=== PATIENT | female | born 1945 | race Two or more races ===

== ENCOUNTER → 2023-04-03 | Outpatient (CLI) | payer OTHER ==
[2023-04-03 07:44] LABS: Basophils # (auto) 0 10 ^3/uL (0-0.2); Basophils % (auto) 0.9 % (0.0-2.0); Eosinophils # (auto) 0.1 10 ^3/uL (0-0.8); Hematocrit 41.3 % (36.0-46.0); Hemoglobin 14.1 g/dL (12.2-16.2); Lymphocytes # (auto) 1.7 10 ^3/uL (0.4-5.4); Lymphocytes % (auto) 30.7 % (10.0-50.0); Mean Corpuscular Hgb Conc. 34.3 g/dL (32.0-36.0); Mean Corpuscular Volume 96.3 fL (80.0-100.0); Monocytes # (auto) 0.4 10 ^3/uL (0-1.3); Monocytes % (auto) 7.9 % (0.0-12.0); Neutrophils # (auto) 3.2 10 ^3/uL (1.6-8.6); Neutrophils % (auto) 58.5 % (37.0-80.0); Nucleated Red Blood Cells % 0.1 %; Red Blood Cells 4.29 10^6/uL (4.0-5.20); Red Cell Distribution Width 13.9 % (11.8-14.3); White Blood Cell 5.5 10^3/uL (4.4-10.8)
[2023-04-03 09:25] LABS: Potassium 3.7 mmol/L (3.5-5.1)
[2023-04-03 09:44] LABS: Albumin 3.7 g/dL (3.4-5.0); BUN/Creatinine Ratio 16.3 (10.0-20.0); Bilirubin, Total 0.6 mg/dL (0.2-1.0); Calcium 9.1 mg/dL (8.5-10.1); Total Protein 7.6 g/dL (6.4-8.2)
[2023-04-03 10:57] LABS: Urine Bacteria NONE SEEN /hpf (None Seen); Urine Blood Negative /uL (Negative); Urine Specific Gravity 1.008 (1.001-1.035); Urine WBC <1 /hpf (0 - 5)
== END | disposition home or self-care (01) ==
LOC: LAB 07:02
PROVIDERS: ATTEND Internal Medicine
DX: I10 Essential (primary) hypertension (principal); E11.65 Type 2 diabetes mellitus with hyperglycemia; K21.9 Gastro-esophageal reflux disease without esophagitis
CPT/HCPCS: 36415; 80053; 80061; 81001; 83036; 85025; 87086

== ENCOUNTER 2023-05-07 08:06 | Inpatient (IN) | payer OTHER ==
[~2023-05-07] VITALS: Ht 167.6 cm; Wt 58.9 kg
[2023-05-07] MEDS ORDERED: HYDROcodone-ACET 5/325MG TAB PO ONE (13:15)
[2023-05-07 13:56] LABS: Hemoglobin 13.8 g/dL (12.2-16.2); Lymphocytes # (auto) 1.2 10 ^3/uL (0.4-5.4); Monocytes # (auto) 0.3 10 ^3/uL (0-1.3); Nucleated Red Blood Cells % 0.1 %; White Blood Cell 6.4 10^3/uL (4.4-10.8)
[2023-05-07 13:59] LABS: Basophils # (auto) 0 10 ^3/uL (0-0.2); Basophils % (auto) 0.7 % (0.0-2.0); Eosinophils # (auto) 0 10 ^3/uL (0-0.8); Eosinophils % (auto) 0.8 % (0.0-7.0); Hematocrit 39.9 % (36.0-46.0); Lymphocytes % (auto) 18.3 % (10.0-50.0); Mean Corpuscular Hemoglobin 33.8 pg (28.0-32.0); Mean Corpuscular Hgb Conc. 34.5 g/dL (32.0-36.0); Mean Corpuscular Volume 97.7 fL (80.0-100.0); Monocytes % (auto) 4.7 % (0.0-12.0); Neutrophils # (auto) 4.9 10 ^3/uL (1.6-8.6); Neutrophils % (auto) 75.5 % (37.0-80.0); Red Blood Cells 4.08 10^6/uL (4.0-5.20); Red Cell Distribution Width 13.7 % (11.8-14.3)
[2023-05-07 14:19] LABS: Albumin 4.4 g/dL (3.2-4.8); Alkaline Phosphatase 110 U/L (46-116); Anion Gap 10.1 (5-15); Aspartate Aminotransferase 16 U/L (13-40); BUN/Creatinine Ratio 13.3 (10.0-20.0); Blood Urea Nitrogen 11 mg/dL (9-23); Calcium 9.3 mg/dL (8.5-10.1); Carbon Dioxide 25.9 mmol/L (20-30); Chloride 105 mmol/L (98-107); Glucose 183 mg/dL (74-106); Potassium 3.5 mmol/L (3.5-5.1); Sodium 141 mmol/L (136-145)
[2023-05-07 14:20] LABS: Bilirubin, Total 0.5 mg/dL (0.2-1.0); Total Protein 7.4 g/dL (5.7-8.2)
[2023-05-07 14:23] LABS: INR 1.03 (0.9-1.15); Partial Thromboplastin Time 22.7 SEC (24.5-34.5); Prothrombin Time 10.8 sec (9.3-11.8)
[2023-05-07 14:38] LABS: Alanine Aminotransferase < 9 U/L (7-40)
[2023-05-07] MEDS ORDERED: DEXTROSE (50%) 50ML SYRG IV PRN (14:45)
[2023-05-07] MEDS ORDERED: HYDROcodone-ACET 5/325MG TAB PO PRN (14:45)
[2023-05-07] MEDS ORDERED: HYDROcodone-ACET 10/325MG TAB PO PRN (14:45)
[2023-05-07] MEDS ORDERED: hydrALAZINE HCL 20 MG/ML VL IV PRN (14:45)
[2023-05-07] MEDS ORDERED: URSO300C2 PO (14:57)
[2023-05-07] MEDS ORDERED: METF-370 PO (14:57)
[2023-05-07] MEDS ORDERED: POTA-264 PO (14:57)
[2023-05-07] MEDS ORDERED: GAB100C PO (14:57)
[2023-05-07] MEDS ORDERED: SIMV20TA20 PO (14:57)
[2023-05-07 16:02] VITALS: PULSE 60; RESP 12; O2SAT 97
[2023-05-07] MEDS: InsuLIN REG 1unit/0.01ml Soln (100units/ml) SC SCH ×3 (17:00→22:39)
[2023-05-07] MEDS: ACCU-CHEK COMFORT CURVE STRIP VI SCH ×2 (17:11→22:18)
[2023-05-07] MEDS: URSODIOL 300 MG CAP PO SCH (22:00)
[2023-05-07] MEDS: ATORVASTATIN 20 MG TAB PO SCH (22:34)
[2023-05-07] MEDS: GABAPENTIN 100 MG CAP PO SCH (22:35)
[2023-05-07] MEDS: ACETAMINOPHEN 325 MG TAB PO PRN (22:55)
[2023-05-08 02:40] LABS: Urine Bacteria NONE SEEN /hpf (None Seen); Urine Blood Negative /uL (Negative); Urine Clarity Clear (Clear); Urine Color Colorless (Yellow); Urine Protein, UAD Negative (Negative); Urine Urobilinogen Normal (Negative); Urine WBC 101 /hpf (0 - 5)
[2023-05-08] MEDS: ACCU-CHEK COMFORT CURVE STRIP VI SCH ×4 (06:31→22:21)
[2023-05-08 07:30] VITALS: O2SAT 98
[2023-05-08 08:04] LABS: Basophils # (auto) 0.1 10 ^3/uL (0-0.2); Basophils % (auto) 1.1 % (0.0-2.0); Eosinophils # (auto) 0.1 10 ^3/uL (0-0.8); Eosinophils % (auto) 2.4 % (0.0-7.0); Hematocrit 39.2 % (36.0-46.0); Hemoglobin 13.4 g/dL (12.2-16.2); Lymphocytes # (auto) 1.2 10 ^3/uL (0.4-5.4); Lymphocytes % (auto) 22.8 % (10.0-50.0); Mean Corpuscular Hemoglobin 33.2 pg (28.0-32.0); Mean Corpuscular Hgb Conc. 34.1 g/dL (32.0-36.0); Mean Corpuscular Volume 97.3 fL (80.0-100.0); Monocytes # (auto) 0.4 10 ^3/uL (0-1.3); Monocytes % (auto) 8.7 % (0.0-12.0); Neutrophils # (auto) 3.3 10 ^3/uL (1.6-8.6); Nucleated Red Blood Cells % 0.1 %; Red Blood Cells 4.03 10^6/uL (4.0-5.20); White Blood Cell 5.1 10^3/uL (4.4-10.8)
[2023-05-08 08:23] LABS: Alkaline Phosphatase 93 U/L (46-116); Anion Gap 7.8 (5-15); Aspartate Aminotransferase 17 U/L (13-40); BUN/Creatinine Ratio 16.3 (10.0-20.0); Bilirubin, Total 0.7 mg/dL (0.2-1.0); Blood Urea Nitrogen 13 mg/dL (9-23); Calcium 9.1 mg/dL (8.5-10.1); Carbon Dioxide 24.2 mmol/L (20-30); Chloride 106 mmol/L (98-107); Glucose 130 mg/dL (74-106); Potassium 3.6 mmol/L (3.5-5.1); Sodium 138 mmol/L (136-145); Total Protein 6.8 g/dL (5.7-8.2)
[2023-05-08 08:26] LABS: Alanine Aminotransferase < 9 U/L (7-40)
[2023-05-08] MEDS: POTASSIUM CHL 10 Meq TABLET PO SCH (09:44)
[2023-05-08] MEDS: URSODIOL 300 MG CAP PO SCH ×2 (09:44→22:21)
[2023-05-08] MEDS: InsuLIN REG 1unit/0.01ml Soln (100units/ml) SC SCH ×3 (11:30→22:00)
[2023-05-08 17:00] VITALS: BP 136/71; PULSE 67; RESP 19; TEMP 97.5; O2SAT 99
[2023-05-08 20:00] VITALS: O2SAT 97
[2023-05-08 21:54] VITALS: BP 143/82; PULSE 94; RESP 20; TEMP 97.3; O2SAT 97
[2023-05-08] MEDS: GABAPENTIN 100 MG CAP PO SCH (22:21)
[2023-05-08] MEDS: ATORVASTATIN 20 MG TAB PO SCH (22:21)
[2023-05-09] VITALS (7 sets, daily range): BP systolic 114–159; BP diastolic 69–79; PULSE 70–75; RESP 18–20; TEMP 97.6–98.5; O2SAT 93–100
[2023-05-09 06:57] LABS: Basophils # (auto) 0 10 ^3/uL (0-0.2); Basophils % (auto) 0.7 % (0.0-2.0); Eosinophils # (auto) 0.1 10 ^3/uL (0-0.8); Eosinophils % (auto) 1.7 % (0.0-7.0); Hematocrit 38.1 % (36.0-46.0); Hemoglobin 13.4 g/dL (12.2-16.2); Lymphocytes # (auto) 1.2 10 ^3/uL (0.4-5.4); Lymphocytes % (auto) 17.3 % (10.0-50.0); Mean Corpuscular Hemoglobin 33.3 pg (28.0-32.0); Mean Corpuscular Hgb Conc. 35.2 g/dL (32.0-36.0); Mean Corpuscular Volume 94.7 fL (80.0-100.0); Monocytes # (auto) 0.5 10 ^3/uL (0-1.3); Neutrophils # (auto) 5.1 10 ^3/uL (1.6-8.6); Neutrophils % (auto) 73.3 % (37.0-80.0); Nucleated Red Blood Cells % 0.1 %; Red Blood Cells 4.02 10^6/uL (4.0-5.20); Red Cell Distribution Width 13.5 % (11.8-14.3); White Blood Cell 6.9 10^3/uL (4.4-10.8)
[2023-05-09] MEDS: InsuLIN REG 1unit/0.01ml Soln (100units/ml) SC SCH ×4 (07:00→22:00)
[2023-05-09] MEDS: ACCU-CHEK COMFORT CURVE STRIP VI SCH ×3 (07:24→18:01)
[2023-05-09 07:26] LABS: Calcium 9.1 mg/dL (8.5-10.1); Chloride 102 mmol/L (98-107); Potassium 3.9 mmol/L (3.5-5.1); Sodium 136 mmol/L (136-145)
[2023-05-09 07:27] LABS: Anion Gap 6.3 (5-15); Carbon Dioxide 27.7 mmol/L (20-30)
[2023-05-09 07:32] LABS: Blood Urea Nitrogen 19 mg/dL (9-23); Glucose 140 mg/dL (74-106)
[2023-05-09] MEDS: POTASSIUM CHL 10 Meq TABLET PO SCH (10:00)
[2023-05-09] MEDS: URSODIOL 300 MG CAP PO SCH ×2 (10:01→23:11)
[2023-05-09] MEDS ORDERED: LIDOCAINE 2% (LOCAL ANESTH.) PF 5ml SDV ONE (10:41)
[2023-05-09] MEDS ORDERED: fentaNYL CITRATE 100 MCG/2 ML VL ONE (10:58)
[2023-05-09] MEDS ORDERED: MIDAZOLAM HCL 2MG/2ML 2ml VIAL (1mg/ml) ONE (10:58)
[2023-05-09] MEDS ORDERED: MIDAZOLAM HCL 2MG/2ML 2ml VIAL (1mg/ml) IV ONE (11:00)
[2023-05-09] MEDS ORDERED: fentaNYL CITRATE 100 MCG/2 ML VL IV ONE (11:00)
[2023-05-09] MEDS: ACETAMINOPHEN 325 MG TAB PO PRN (16:01)
[2023-05-09 22:54] LABS: Basophils # (auto) 0 10 ^3/uL (0-0.2); Basophils % (auto) 0.8 % (0.0-2.0); Eosinophils # (auto) 0.1 10 ^3/uL (0-0.8); Eosinophils % (auto) 1.7 % (0.0-7.0); Hematocrit 36.1 % (36.0-46.0); Hemoglobin 12.7 g/dL (12.2-16.2); Lymphocytes # (auto) 1.5 10 ^3/uL (0.4-5.4); Lymphocytes % (auto) 29.5 % (10.0-50.0); Mean Corpuscular Hemoglobin 33.4 pg (28.0-32.0); Mean Corpuscular Hgb Conc. 35.1 g/dL (32.0-36.0); Mean Corpuscular Volume 95.2 fL (80.0-100.0); Monocytes # (auto) 0.5 10 ^3/uL (0-1.3); Monocytes % (auto) 9.2 % (0.0-12.0); Neutrophils % (auto) 58.8 % (37.0-80.0); Red Cell Distribution Width 13.5 % (11.8-14.3); White Blood Cell 5.2 10^3/uL (4.4-10.8)
[2023-05-09] MEDS: GABAPENTIN 100 MG CAP PO SCH (23:03)
[2023-05-09 23:04] LABS: Chloride 105 mmol/L (98-107); Potassium 3.6 mmol/L (3.5-5.1); Sodium 135 mmol/L (136-145)
[2023-05-09] MEDS: ATORVASTATIN 20 MG TAB PO SCH (23:04)
[2023-05-09] MEDS: CEPHALEXIN 250 MG CAP PO SCH (23:04)
[2023-05-09 23:05] LABS: Anion Gap 3.9 (5-15); Calcium 8.9 mg/dL (8.7-10.4); Carbon Dioxide 26.1 mmol/L (20-30)
[2023-05-09 23:10] LABS: BUN/Creatinine Ratio 19.5 (10.0-20.0); Blood Urea Nitrogen 15 mg/dL (9-23); Glucose 130 mg/dL (74-106)
[2023-05-10] MEDS: ACCU-CHEK COMFORT CURVE STRIP VI SCH ×5 (00:10→22:04)
[2023-05-10 05:00] VITALS: BP 130/70; PULSE 63; RESP 18; TEMP 98.1; O2SAT 93
[2023-05-10] MEDS: InsuLIN REG 1unit/0.01ml Soln (100units/ml) SC SCH ×4 (07:00→22:07)
[2023-05-10] MEDS: ACETAMINOPHEN 325 MG TAB PO PRN ×2 (07:23→22:12)
[2023-05-10] MEDS ORDERED: PANTOPRAZOLE 40 MG TAB PO ONE (08:15)
[2023-05-10] MEDS ORDERED: DOCUSATE SOD 100 MG CAP PO ONE (08:15)
[2023-05-10 08:30] VITALS: RESP 18
[2023-05-10 09:00] VITALS: BP 133/71; PULSE 63; RESP 16; TEMP 97.6; O2SAT 100
[2023-05-10] MEDS: CEPHALEXIN 250 MG CAP PO SCH ×2 (10:37→22:02)
[2023-05-10] MEDS: URSODIOL 300 MG CAP PO SCH ×2 (10:38→22:03)
[2023-05-10] MEDS: POTASSIUM CHL 10 Meq TABLET PO SCH (10:38)
[2023-05-10 13:00] VITALS: BP 120/61; PULSE 73; RESP 17; TEMP 98; O2SAT 99
[2023-05-10 17:00] VITALS: BP 147/79; PULSE 71; RESP 18; TEMP 98.2; O2SAT 100
[2023-05-10 22:00] VITALS: BP 123/74; PULSE 72; RESP 18; TEMP 98; O2SAT 97
[2023-05-10] MEDS: PANTOPRAZOLE 40 MG TAB PO SCH (22:00)
[2023-05-10] MEDS: GABAPENTIN 100 MG CAP PO SCH (22:01)
[2023-05-10] MEDS: ATORVASTATIN 20 MG TAB PO SCH (22:01)
[2023-05-10] MEDS: DOCUSATE SOD 100 MG CAP PO SCH (22:02)
[2023-05-11 05:00] VITALS: BP 138/66; PULSE 60; RESP 18; TEMP 97.6; O2SAT 95
[2023-05-11] MEDS: ACCU-CHEK COMFORT CURVE STRIP VI SCH ×4 (06:20→21:25)
[2023-05-11] MEDS: InsuLIN REG 1unit/0.01ml Soln (100units/ml) SC SCH ×4 (06:20→21:26)
[2023-05-11 08:00] VITALS: PULSE 67; RESP 16
[2023-05-11] MEDS: PANTOPRAZOLE 40 MG TAB PO SCH (08:48)
[2023-05-11] MEDS: URSODIOL 300 MG CAP PO SCH ×2 (08:50→21:29)
[2023-05-11] MEDS: DOCUSATE SOD 100 MG CAP PO SCH ×2 (08:51→21:28)
[2023-05-11] MEDS: POTASSIUM CHL 10 Meq TABLET PO SCH (08:51)
[2023-05-11] MEDS: CEPHALEXIN 250 MG CAP PO SCH ×2 (08:51→21:27)
[2023-05-11 08:54] LABS: Chloride 105 mmol/L (98-107); Potassium 3.8 mmol/L (3.5-5.1); Sodium 137 mmol/L (136-145)
[2023-05-11 08:56] LABS: Calcium 9.1 mg/dL (8.5-10.1)
[2023-05-11 09:00] VITALS: BP 123/63; PULSE 67; RESP 14; TEMP 96.8; O2SAT 96
[2023-05-11 09:01] LABS: BUN/Creatinine Ratio 15.8 (10.0-20.0); Blood Urea Nitrogen 12 mg/dL (9-23); Glucose 132 mg/dL (74-106)
[2023-05-11 09:03] LABS: Basophils # (auto) 0 10 ^3/uL (0-0.2); Eosinophils # (auto) 0.1 10 ^3/uL (0-0.8); Hematocrit 41.7 % (36.0-46.0); Hemoglobin 13.5 g/dL (12.2-16.2); Lymphocytes # (auto) 1.2 10 ^3/uL (0.4-5.4); Lymphocytes % (auto) 24.7 % (10.0-50.0); Mean Corpuscular Hemoglobin 31.4 pg (28.0-32.0); Mean Corpuscular Hgb Conc. 32.2 g/dL (32.0-36.0); Mean Corpuscular Volume 97.4 fL (80.0-100.0); Monocytes # (auto) 0.4 10 ^3/uL (0-1.3); Monocytes % (auto) 8.2 % (0.0-12.0); Neutrophils # (auto) 3.2 10 ^3/uL (1.6-8.6); Neutrophils % (auto) 64.1 % (37.0-80.0); Nucleated Red Blood Cells % 0.2 %; Red Blood Cells 4.28 10^6/uL (4.0-5.20); Red Cell Distribution Width 14.4 % (11.8-14.3); White Blood Cell 5.1 10^3/uL (4.4-10.8)
[2023-05-11 13:00] VITALS: BP 142/68; PULSE 67; RESP 14; RESP 4; TEMP 96.7; O2SAT 95
[2023-05-11 17:00] VITALS: BP 126/76; PULSE 70; RESP 14; TEMP 98; O2SAT 95
[2023-05-11] MEDS: ATORVASTATIN 20 MG TAB PO SCH (21:28)
[2023-05-11] MEDS: GABAPENTIN 100 MG CAP PO SCH (21:28)
[2023-05-11] MEDS: ACETAMINOPHEN 325 MG TAB PO PRN (21:36)
[2023-05-11 22:00] VITALS: BP 131/61; PULSE 73; RESP 16; TEMP 98; O2SAT 98
[2023-05-12 05:00] VITALS: BP 134/68; PULSE 61; RESP 20; TEMP 97.5; O2SAT 96
[2023-05-12] MEDS: InsuLIN REG 1unit/0.01ml Soln (100units/ml) SC SCH ×4 (07:00→21:58)
[2023-05-12] MEDS: ACCU-CHEK COMFORT CURVE STRIP VI SCH ×4 (07:05→21:57)
[2023-05-12 07:30] VITALS: BP 148/62; PULSE 75; RESP 18; TEMP 98; O2SAT 100
[2023-05-12 08:00] VITALS: PULSE 75; RESP 18; O2SAT 100
[2023-05-12 10:04] LABS: Basophils # (auto) 0 10 ^3/uL (0-0.2); Basophils % (auto) 0.8 % (0.0-2.0); Eosinophils # (auto) 0.1 10 ^3/uL (0-0.8); Hematocrit 39.3 % (36.0-46.0); Hemoglobin 12.9 g/dL (12.2-16.2); Lymphocytes # (auto) 0.9 10 ^3/uL (0.4-5.4); Mean Corpuscular Hemoglobin 32.1 pg (28.0-32.0); Mean Corpuscular Hgb Conc. 32.8 g/dL (32.0-36.0); Mean Corpuscular Volume 97.8 fL (80.0-100.0); Monocytes # (auto) 0.4 10 ^3/uL (0-1.3); Monocytes % (auto) 7.6 % (0.0-12.0); Neutrophils # (auto) 3.8 10 ^3/uL (1.6-8.6); Neutrophils % (auto) 72.6 % (37.0-80.0); Nucleated Red Blood Cells % 0.1 %; Red Blood Cells 4.02 10^6/uL (4.0-5.20); Red Cell Distribution Width 14.3 % (11.8-14.3); White Blood Cell 5.2 10^3/uL (4.4-10.8)
[2023-05-12] MEDS: POTASSIUM CHL 10 Meq TABLET PO SCH (10:36)
[2023-05-12] MEDS: PANTOPRAZOLE 40 MG TAB PO SCH (10:36)
[2023-05-12] MEDS: DOCUSATE SOD 100 MG CAP PO SCH ×2 (10:36→21:59)
[2023-05-12] MEDS: CEPHALEXIN 250 MG CAP PO SCH ×2 (10:36→21:59)
[2023-05-12] MEDS: URSODIOL 300 MG CAP PO SCH ×2 (10:37→22:01)
[2023-05-12 10:39] LABS: Chloride 104 mmol/L (98-107); Potassium 4.2 mmol/L (3.5-5.1); Sodium 136 mmol/L (136-145)
[2023-05-12 10:40] LABS: Anion Gap 7.7 (5-15); Calcium 8.8 mg/dL (8.5-10.1); Carbon Dioxide 24.3 mmol/L (20-30)
[2023-05-12 10:45] LABS: BUN/Creatinine Ratio 20.8 (10.0-20.0); Blood Urea Nitrogen 16 mg/dL (9-23); Glucose 226 mg/dL (74-106)
[2023-05-12 13:30] VITALS: BP 122/58; PULSE 76; RESP 20; TEMP 97.9; O2SAT 98
[2023-05-12] MEDS ORDERED: POLYETHYLENE GLYCOL 17 GM PWDR PO ONE (14:15)
[2023-05-12] MEDS: ACETAMINOPHEN 325 MG TAB PO PRN (14:49)
[2023-05-12 16:30] VITALS: BP 124/61; PULSE 63; RESP 17; TEMP 97.7; O2SAT 97
[2023-05-12 18:50] LABS: COVID19 ANTIGEN SOFIA FIA NEGATIVE (NEGATIVE)
[2023-05-12 22:00] VITALS: BP 146/55; PULSE 68; RESP 20; TEMP 98.3; O2SAT 95
[2023-05-12] MEDS: ATORVASTATIN 20 MG TAB PO SCH (22:00)
[2023-05-12] MEDS: GABAPENTIN 100 MG CAP PO SCH (22:00)
[2023-05-13] VITALS (8 sets, daily range): BP systolic 128–153; BP diastolic 63–80; PULSE 62–77; RESP 16–20; TEMP 97.5–98.4; O2SAT 94–99
[2023-05-13 06:05] LABS: Anion Gap 8.9 (5-15); Carbon Dioxide 24.1 mmol/L (20-30); Chloride 104 mmol/L (98-107); Potassium 3.9 mmol/L (3.5-5.1); Sodium 137 mmol/L (136-145)
[2023-05-13 06:07] LABS: Calcium 8.9 mg/dL (8.7-10.4)
[2023-05-13 06:11] LABS: BUN/Creatinine Ratio 19.2 (10.0-20.0); Blood Urea Nitrogen 15 mg/dL (9-23); Glucose 98 mg/dL (74-106)
[2023-05-13 06:14] LABS: Basophils # (auto) 0.1 10 ^3/uL (0-0.2); Eosinophils # (auto) 0.1 10 ^3/uL (0-0.8); Eosinophils % (auto) 1.6 % (0.0-7.0); Hematocrit 38.3 % (36.0-46.0); Hemoglobin 12.9 g/dL (12.2-16.2); Lymphocytes # (auto) 1.4 10 ^3/uL (0.4-5.4); Mean Corpuscular Hgb Conc. 33.5 g/dL (32.0-36.0); Mean Corpuscular Volume 98.4 fL (80.0-100.0); Monocytes # (auto) 0.6 10 ^3/uL (0-1.3); Monocytes % (auto) 10.5 % (0.0-12.0); Neutrophils # (auto) 3.8 10 ^3/uL (1.6-8.6); Neutrophils % (auto) 63.9 % (37.0-80.0); Nucleated Red Blood Cells % 0.1 %; Red Blood Cells 3.89 10^6/uL (4.0-5.20); Red Cell Distribution Width 13.7 % (11.8-14.3); White Blood Cell 5.9 10^3/uL (4.4-10.8)
[2023-05-13] MEDS: ACCU-CHEK COMFORT CURVE STRIP VI SCH ×4 (06:58→22:05)
[2023-05-13] MEDS: InsuLIN REG 1unit/0.01ml Soln (100units/ml) SC SCH ×4 (06:58→22:10)
[2023-05-13] MEDS: DOCUSATE SOD 100 MG CAP PO SCH ×2 (09:16→22:04)
[2023-05-13] MEDS: PANTOPRAZOLE 40 MG TAB PO SCH (09:16)
[2023-05-13] MEDS: POTASSIUM CHL 10 Meq TABLET PO SCH (09:16)
[2023-05-13] MEDS: CEPHALEXIN 250 MG CAP PO SCH ×2 (09:17→22:04)
[2023-05-13] MEDS: URSODIOL 300 MG CAP PO SCH ×2 (09:17→22:03)
[2023-05-13] MEDS: FLUoxetine HCL 10 MG CAP PO SCH (10:00)
[2023-05-13] MEDS: GABAPENTIN 100 MG CAP PO SCH (22:04)
[2023-05-13] MEDS: ATORVASTATIN 20 MG TAB PO SCH (22:04)
[2023-05-14] VITALS (7 sets, daily range): BP systolic 129–151; BP diastolic 67–81; PULSE 65–73; RESP 16–18; TEMP 97.6–98.3; O2SAT 95–100
[2023-05-14] MEDS: InsuLIN REG 1unit/0.01ml Soln (100units/ml) SC SCH ×4 (06:23→22:14)
[2023-05-14] MEDS: ACCU-CHEK COMFORT CURVE STRIP VI SCH ×4 (06:23→22:06)
[2023-05-14 09:16] LABS: Basophils # (auto) 0 10 ^3/uL (0-0.2); Basophils % (auto) 0.7 % (0.0-2.0); Eosinophils # (auto) 0.1 10 ^3/uL (0-0.8); Eosinophils % (auto) 1.9 % (0.0-7.0); Hemoglobin 12.6 g/dL (12.2-16.2); Lymphocytes # (auto) 0.9 10 ^3/uL (0.4-5.4); Lymphocytes % (auto) 17.3 % (10.0-50.0); Mean Corpuscular Hemoglobin 32.4 pg (28.0-32.0); Mean Corpuscular Hgb Conc. 33.1 g/dL (32.0-36.0); Mean Corpuscular Volume 97.7 fL (80.0-100.0); Monocytes # (auto) 0.4 10 ^3/uL (0-1.3); Monocytes % (auto) 7.2 % (0.0-12.0); Neutrophils # (auto) 3.9 10 ^3/uL (1.6-8.6); Neutrophils % (auto) 72.9 % (37.0-80.0); Nucleated Red Blood Cells % 0.1 %; Red Blood Cells 3.89 10^6/uL (4.0-5.20); White Blood Cell 5.4 10^3/uL (4.4-10.8)
[2023-05-14] MEDS: CEPHALEXIN 250 MG CAP PO SCH ×2 (09:33→22:06)
[2023-05-14] MEDS: POTASSIUM CHL 10 Meq TABLET PO SCH (09:34)
[2023-05-14] MEDS: PANTOPRAZOLE 40 MG TAB PO SCH (09:34)
[2023-05-14] MEDS: FLUoxetine HCL 10 MG CAP PO SCH (09:34)
[2023-05-14 09:35] LABS: Chloride 103 mmol/L (98-107); Potassium 3.8 mmol/L (3.5-5.1); Sodium 133 mmol/L (136-145)
[2023-05-14] MEDS: DOCUSATE SOD 100 MG CAP PO SCH ×2 (09:35→22:06)
[2023-05-14 09:36] LABS: Anion Gap 4.6 (5-15); Calcium 8.7 mg/dL (8.5-10.1); Carbon Dioxide 25.4 mmol/L (20-30)
[2023-05-14] MEDS: URSODIOL 300 MG CAP PO SCH ×2 (09:36→22:05)
[2023-05-14 09:41] LABS: BUN/Creatinine Ratio 18.6 (10.0-20.0); Blood Urea Nitrogen 16 mg/dL (9-23); Glucose 226 mg/dL (74-106)
[2023-05-14] MEDS: GABAPENTIN 100 MG CAP PO SCH (22:05)
[2023-05-14] MEDS: ATORVASTATIN 20 MG TAB PO SCH (22:06)
[2023-05-15 05:00] VITALS: BP_SYST 122; BP_SYST 123; BP_DIAS 57; BP_DIAS 74; PULSE 63; PULSE 67; RESP 16; RESP 18; TEMP 97.8; TEMP 98.2; O2SAT 95
[2023-05-15] MEDS: InsuLIN REG 1unit/0.01ml Soln (100units/ml) SC SCH ×3 (07:00→16:42)
[2023-05-15] MEDS: ACCU-CHEK COMFORT CURVE STRIP VI SCH ×3 (07:17→16:42)
[2023-05-15 07:40] LABS: Basophils # (auto) 0 10 ^3/uL (0-0.2); Basophils % (auto) 0.9 % (0.0-2.0); Eosinophils # (auto) 0.1 10 ^3/uL (0-0.8); Eosinophils % (auto) 1.8 % (0.0-7.0); Hematocrit 37.5 % (36.0-46.0); Hemoglobin 13.4 g/dL (12.2-16.2); Lymphocytes # (auto) 1.3 10 ^3/uL (0.4-5.4); Lymphocytes % (auto) 25.3 % (10.0-50.0); Mean Corpuscular Hemoglobin 33.9 pg (28.0-32.0); Mean Corpuscular Hgb Conc. 35.7 g/dL (32.0-36.0); Mean Corpuscular Volume 95.1 fL (80.0-100.0); Monocytes # (auto) 0.5 10 ^3/uL (0-1.3); Monocytes % (auto) 9.3 % (0.0-12.0); Neutrophils # (auto) 3.2 10 ^3/uL (1.6-8.6); Neutrophils % (auto) 62.7 % (37.0-80.0); Nucleated Red Blood Cells % 0.1 %; Red Blood Cells 3.94 10^6/uL (4.0-5.20); Red Cell Distribution Width 13.5 % (11.8-14.3)
[2023-05-15 07:56] LABS: Chloride 103 mmol/L (98-107); Potassium 3.7 mmol/L (3.5-5.1); Sodium 137 mmol/L (136-145)
[2023-05-15 07:58] LABS: Calcium 9.2 mg/dL (8.5-10.1)
[2023-05-15 08:00] VITALS: BP 129/60; PULSE 66; RESP 18; TEMP 97.7; O2SAT 100
[2023-05-15 08:02] LABS: BUN/Creatinine Ratio 17.1 (10.0-20.0); Blood Urea Nitrogen 13 mg/dL (9-23); Glucose 105 mg/dL (74-106)
[2023-05-15 09:00] VITALS: BP 129/60; PULSE 66; RESP 18; TEMP 97.7; O2SAT 100
[2023-05-15] MEDS: CEPHALEXIN 250 MG CAP PO SCH (09:32)
[2023-05-15] MEDS: URSODIOL 300 MG CAP PO SCH (09:32)
[2023-05-15] MEDS: PANTOPRAZOLE 40 MG TAB PO SCH (09:33)
[2023-05-15] MEDS: DOCUSATE SOD 100 MG CAP PO SCH (09:33)
[2023-05-15] MEDS: POTASSIUM CHL 10 Meq TABLET PO SCH (09:33)
[2023-05-15] MEDS: FLUoxetine HCL 10 MG CAP PO SCH (09:34)
[2023-05-15] MEDS ORDERED: DOCU-265 PO (09:50)
[2023-05-15 13:00] VITALS: BP 124/61; PULSE 63; RESP 18; TEMP 98.2; O2SAT 98
[2023-05-15 17:00] VITALS: BP 135/59; PULSE 20; RESP 96; TEMP 98.3; O2SAT 96
[2023-05-15 18:29] VITALS: BP 129/60; PULSE 66; RESP 18; TEMP 97.7; O2SAT 100
== END 2023-05-15 20:25 | disposition home or self-care (01) | DRG 605 ==
LOC: ER 08:06 → OVERFLOW 14:41 → WEST WING 05-08 16:14
PROVIDERS: ADMIT Internal Medicine Pulmonary Disease; ATTEND Radiology Diagnostic Radiology
PROC: 0Y9D30Z Drainage of Left Upper Leg with Drainage Device, Percutaneous Approach (ICD-10-PCS; principal; 2023-05-09)
DX: S70.02XA Contusion of left hip, initial encounter (principal); I10 Essential (primary) hypertension; E78.5 Hyperlipidemia, unspecified; Z20.822 Contact with and (suspected) exposure to COVID-19; S43.402A Unspecified sprain of left shoulder joint, initial encounter; S70.12XA Contusion of left thigh, initial encounter; E11.42 Type 2 diabetes mellitus with diabetic polyneuropathy; W01.0XXA Fall on same level from slipping, tripping and stumbling without subsequent striking against object, initial encounter; Y93.89 Activity, other specified; Y92.89 Other specified places as the place of occurrence of the external cause; Y99.8 Other external cause status; Z88.8 Allergy status to other drugs, medicaments and biological substances; Z82.49 Family history of ischemic heart disease and other diseases of the circulatory system
CPT/HCPCS: 36415; 70450; 72040; 72192; 73030; 76942; 80048; 80053; 81001; 82306; 82607; 82962; 83036; 84443; 85025; 85610; 85730; 87205; 87426; 93005; 93926; 97110; 97116; 97163; 97530; G0378; J1815; J2001; J2250

== ENCOUNTER → 2023-09-13 | Outpatient (CLI) | payer OTHER ==
[~2023-09-13] MED LIST: DOCU-265 PO; GAB100C PO; METF-370 PO; POTA-264 PO; SIMV20TA20 PO; URSO300C2 PO
[2023-09-13 11:40] LABS: Urine WBC None Seen /hpf (0 - 5)
[2023-09-13 11:48] LABS: Basophils # (auto) 0.1 10 ^3/uL (0-0.2); Basophils % (auto) 1.2 % (0.0-2.0); Eosinophils # (auto) 0.1 10 ^3/uL (0-0.8); Eosinophils % (auto) 1.6 % (0.0-7.0); Hematocrit 41.3 % (36.0-46.0); Lymphocytes # (auto) 1.5 10 ^3/uL (0.4-5.4); Lymphocytes % (auto) 28.6 % (10.0-50.0); Mean Corpuscular Volume 97.2 fL (80.0-100.0); Monocytes # (auto) 0.4 10 ^3/uL (0-1.3); Monocytes % (auto) 7.8 % (0.0-12.0); Neutrophils # (auto) 3.1 10 ^3/uL (1.6-8.6); Neutrophils % (auto) 60.8 % (37.0-80.0); Red Blood Cells 4.25 10^6/uL (4.0-5.20); Red Cell Distribution Width 14.2 % (11.8-14.3); White Blood Cell 5.1 10^3/uL (4.4-10.8)
[2023-09-13 12:21] LABS: Albumin 4.4 g/dL (3.2-4.8); Alkaline Phosphatase 153 U/L (46-116); Anion Gap 7 (5-15); Aspartate Aminotransferase 19 U/L (13-40); BUN/Creatinine Ratio 13.2 (10.0-20.0); Blood Urea Nitrogen 10 mg/dL (9-23); Calcium 9.6 mg/dL (8.5-10.1); Carbon Dioxide 30 mmol/L (20-30); Chloride 103 mmol/L (98-107); Glucose 130 mg/dL (74-106); Potassium 3.8 mmol/L (3.5-5.1); Sodium 140 mmol/L (136-145)
[2023-09-13 12:22] LABS: Bilirubin, Total 0.6 mg/dL (0.2-1.0); Total Protein 7.5 g/dL (5.7-8.2)
[2023-09-13 12:25] LABS: Alanine Aminotransferase < 9 U/L (7-40)
[2023-09-13 12:29] LABS: Urine Bacteria NONE SEEN /hpf (None Seen); Urine Blood Negative /uL (Negative); Urine Clarity Clear (Clear); Urine Color Colorless (Yellow); Urine Protein, UAD Negative (Negative); Urine Specific Gravity 1.005 (1.001-1.035); Urine Urobilinogen Normal (Negative)
[2023-09-13 12:41] LABS: Creatinine, Urine 21.97 mg/dL (30.0-125.0)
== END | disposition home or self-care (01) ==
LOC: LAB 11:26
PROVIDERS: ATTEND Internal Medicine
DX: E11.65 Type 2 diabetes mellitus with hyperglycemia (principal); K21.9 Gastro-esophageal reflux disease without esophagitis; E78.00 Pure hypercholesterolemia, unspecified
CPT/HCPCS: 36415; 80053; 81001; 82043; 82570; 83036; 85025; 87086

== ENCOUNTER → 2024-08-22 | Outpatient (CLI) | payer OTHER ==
[2024-08-22 06:52] LABS: Basophils # (auto) 0 10 ^3/uL (0-0.2); Basophils % (auto) 0.6 % (0.0-2.0); Eosinophils # (auto) 0.2 10 ^3/uL (0-0.8); Eosinophils % (auto) 2.8 % (0.0-7.0); Hematocrit 39.8 % (36.0-46.0); Hemoglobin 13.7 g/dL (12.2-16.2); Lymphocytes # (auto) 1.2 10 ^3/uL (0.4-5.4); Lymphocytes % (auto) 22.6 % (10.0-50.0); Mean Corpuscular Hemoglobin 34.1 pg (28.0-32.0); Mean Corpuscular Hgb Conc. 34.5 g/dL (32.0-36.0); Mean Corpuscular Volume 98.7 fL (80.0-100.0); Monocytes # (auto) 0.4 10 ^3/uL (0-1.3); Monocytes % (auto) 7.7 % (0.0-12.0); Neutrophils # (auto) 3.5 10 ^3/uL (1.6-8.6); Neutrophils % (auto) 66.3 % (37.0-80.0); Platelet Count (auto) 208 10^3/uL (140-450); Red Blood Cells 4.03 10^6/uL (4.0-5.20); Red Cell Distribution Width 13.8 % (11.8-14.3); White Blood Cell 5.3 10^3/uL (4.4-10.8)
[2024-08-22 07:11] LABS: Alanine Aminotransferase 11 U/L (7-40); Albumin 4.4 g/dL (3.2-4.8); Anion Gap 7 (5-15); Aspartate Aminotransferase 21 U/L (13-40); BUN/Creatinine Ratio 16.8 (10.0-20.0); Bilirubin, Total 0.6 mg/dL (0.2-1.0); Blood Urea Nitrogen 16 mg/dL (9-23); Carbon Dioxide 31 mmol/L (20-31); Chloride 103 mmol/L (98-107); Cholesterol 149 mg/dL (< 200); LDL Cholesterol 58 mg/dL (< 100); Sodium 141 mmol/L (136-145); Total Protein 7.5 g/dL (5.7-8.2); Triglycerides 100 mg/dL (< 150)
[2024-08-22 07:19] LABS: Alkaline Phosphatase 132 U/L (46-116); Glucose 141 mg/dL (74-106); HDL Cholesterol 77 mg/dL (40-59)
[2024-08-22 07:38] LABS: Creatinine, Urine 31.05 mg/dL (30.0-125.0)
== END | disposition home or self-care (01) ==
LOC: LAB 06:23
PROVIDERS: ATTEND Internal Medicine
DX: I10 Essential (primary) hypertension (principal); K80.36 Calculus of bile duct with acute and chronic cholangitis without obstruction; E78.00 Pure hypercholesterolemia, unspecified; E08.319 Diabetes mellitus due to underlying condition with unspecified diabetic retinopathy without macular edema
CPT/HCPCS: 36415; 80053; 80061; 82043; 82570; 85025

== ENCOUNTER → 2025-01-13 | Outpatient (CLI) | payer OTHER ==
[2025-01-13 11:30] LABS: Basophils # (auto) 0.1 10 ^3/uL (0-0.2); Eosinophils # (auto) 0.1 10 ^3/uL (0-0.8); Eosinophils % (auto) 1.3 % (0.0-7.0); Hemoglobin 15.1 g/dL (12.2-16.2); Monocytes # (auto) 0.4 10 ^3/uL (0-1.3); Neutrophils # (auto) 4.5 10 ^3/uL (1.6-8.6); Red Cell Distribution Width 13.5 % (11.8-14.3)
[2025-01-13 11:33] LABS: Basophils % (auto) 0.9 % (0.0-2.0); Hematocrit 42.4 % (36.0-46.0); Lymphocytes # (auto) 1.5 10 ^3/uL (0.4-5.4); Lymphocytes % (auto) 23.4 % (10.0-50.0); Mean Corpuscular Hgb Conc. 35.5 g/dL (32.0-36.0); Mean Corpuscular Volume 95.8 fL (80.0-100.0); Monocytes % (auto) 6.1 % (0.0-12.0); Neutrophils % (auto) 68.3 % (37.0-80.0); Nucleated Red Blood Cells % 0.2 %; Platelet Count (auto) 193 10^3/uL (140-450); Red Blood Cells 4.42 10^6/uL (4.0-5.20); White Blood Cell 6.5 10^3/uL (4.4-10.8)
[2025-01-13 11:53] LABS: Alanine Aminotransferase 16 U/L (7-40); Albumin 4.7 g/dL (3.2-4.8); Anion Gap 9 (5-15); Aspartate Aminotransferase 17 U/L (13-40); BUN/Creatinine Ratio 16.7 (10.0-20.0); Blood Urea Nitrogen 15 mg/dL (9-23); Calcium 10.4 mg/dL (8.7-10.4); Carbon Dioxide 29 mmol/L (20-31); Chloride 102 mmol/L (98-107); Potassium 3.6 mmol/L (3.5-5.1); Sodium 140 mmol/L (136-145); Total Protein 7.8 g/dL (5.7-8.2)
[2025-01-13 11:54] LABS: Alkaline Phosphatase 121 U/L (46-116); Bilirubin, Total 0.6 mg/dL (0.2-1.0); Glucose 122 mg/dL (74-106)
[2025-01-13 12:27] LABS: Erythrocyte Sedimentation Rate 8 mm/hr (0-20)
[2025-01-13 12:33] LABS: Protein, Urine 16.4 mg/dL (1-14)
[2025-01-13 12:36] LABS: Creatinine, Urine 70.62 mg/dL (30.0-125.0); Urine Protein/Creatinine Ratio 0.23
== END | disposition home or self-care (01) ==
LOC: LAB 11:04
PROVIDERS: ATTEND Internal Medicine
DX: I10 Essential (primary) hypertension (principal); E11.65 Type 2 diabetes mellitus with hyperglycemia; M31.6 Other giant cell arteritis
CPT/HCPCS: 36415; 80053; 82043; 82570; 83036; 84156; 85025; 85652